=== PATIENT | male | born 1980 | race African-American/Black ===

== ENCOUNTER 2016-04-19 10:25 | Emergency (ER) | payer OTHER ==
[~2016-04-19] VITALS: Ht 182.9 cm; Wt 71.0 kg
[~2016-04-19 10:25] MED LIST: AMITRIPTYLINE H50 MG PO; AMOXICILLIN500 MG PO; ATIVAN0.25 MG PO; ATIVAN1 MG PO; BENZTROPINE MESY1 MG PO; CHLORHEXIDINE473 ML MM; CLEOCIN150 MG PO; CLINDAMYCIN HC150 MG PO; COGENTIN0.5 MG PO; COGENTIN1 MG PO; DESYREL100 MG PO; DIVALPROEX SOD500 MG PO; HYDROXYZINE HCL25 MG PO; IBUPROFEN600 MG PO; LORAZEPAM1 MG PO; NAPROSYN375 MG PO; NAPROXEN375 MG PO; PERIDEX1 ML MM; RISPERDAL0.25 MG PO; RISPERDAL1 M1 PO; RISPERDAL2 MG PO; RISPERDAL25 MG/2 ML IM; RISPERIDONE0.5 MG PO; RISPERIDONE1 MG PO; ULTRAM50 MG PO; ZOLPIDEM TARTRAT5 MG PO; risperDAL PO
[2016-04-19 11:57] LABS: EOSINOPHIL (%) 1.3 % (0-5); EOSINOPHIL COUNT 0.1 K/uL (0-0.3); HEMATOCRIT 41.8 % (38.0-50.0); LYMPHOCYTE COUNT 1.4 K/uL (1.0-2.8); MCH 31.8 PG (29.0-34.0); MCHC 34.4 G/DL (30.0-36.0); MCV 92.3 FL (86-99); MEAN PLAT.VOLUME 9.4 uM^3 (9.0-12.4); MONOCYTE COUNT 0.6 K/uL (0-0.8); NEUTROPHIL (%) 48.6 % (45-76); NEUTROPHIL COUNT 1.9 K/uL (1.8-6.4); PLATELET COUNT 209 K/uL (156-360); RBC DIS.WIDTH-CV 13.8 % (11.8-14.6); RBC DIS.WIDTH-SD 45.1 % (39-53); RED BLOOD COUNT 4.53 M/uL (4.00-5.50)
[2016-04-19 12:06] LABS: ADD MIUA? NO; BILIRUBIN NEGATIVE; BLOOD NEGATIVE; COLOR YELLOW ((YELLOW)); GLUCOSE (STRIP) NEGATIVE; KETONES 5; LEUKOCYTES NEGATIVE; NITRITE NEGATIVE; PROTEIN (STRIP) NEGATIVE; UROBILINOGEN 0.2 MG/DL (0.2-1.0)
[2016-04-19 12:12] LABS: CHLORIDE 101 mEq/L (99-109); SODIUM 137 mEq/L (136-147)
[2016-04-19 12:13] LABS: GLUCOSE 94 mg/dL (70-99)
[2016-04-19 12:15] LABS: ANION GAP 13 MEQ/L (2-14)
[2016-04-19 12:16] LABS: SERUM ETHYL ALCOHOL 48 mg/dL
[2016-04-19 12:17] LABS: GFR ESTIMATE (CALCULATED) > 59 mL/min/
[2016-04-19 12:18] LABS: UREA NITROGEN (BUN) 7 mg/dL (9-23)
[2016-04-19 12:22] LABS: AMPHETAMINE NEGATIVE (500 ng/mL); BARBITURATES NEGATIVE (200 ng/mL); BENZODIAZEPINES NEGATIVE (150 ng/mL); COCAINE NEGATIVE (150 ng/mL); INTERNAL CONTROLS VALID? YES; METHADONE NEGATIVE (200 ng/mL); METHAMPHETAMINE NEGATIVE (500 ng/mL); OPIATES (MORPHINE) NEGATIVE (100 ng/mL); OXYCODONE NEGATIVE (100 ng/mL); PHENCYCLIDINE NEGATIVE (25 ng/mL); PROPOXYPHENE NEGATIVE (300 ng/mL); THC CANNABINOIDS NEGATIVE (50 ng/mL); TRICYCLIC ANTIDEPRESSANTS NEGATIVE (300 ng/mL)
[2016-04-19 12:39] VITALS: BP 120/68
== END 2016-04-19 12:39 | disposition home or self-care (01) ==
LOC: EME 10:25
PROVIDERS: Emergency Medicine
DX: F20.9 Schizophrenia, unspecified (principal); R40.0 Somnolence; Z91.14 Patient's other noncompliance with medication regimen; F17.200 Nicotine dependence, unspecified, uncomplicated
CPT/HCPCS: 80048; 81003; 85025; 90839; 99281; 99284; G0480

== ENCOUNTER 2016-05-02 21:34 | Emergency (ER) | payer OTHER ==
[~2016-05-02] VITALS: Ht 182.9 cm; Wt 69.4 kg
[2016-05-02] MEDS ORDERED: ZOLOFT100 MG PO (21:45)
[2016-05-02 22:22] LABS: EOSINOPHIL (%) 2.9 % (0-5); EOSINOPHIL COUNT 0.1 K/uL (0-0.3); HEMATOCRIT 38.9 % (38.0-50.0); IMMATURE GRANULOCYTE (%) 0.2 % (0.0-0.7); INSTRUMENT ABS NEUTROPHIL CT 1.5 K/uL; MCH 31.4 PG (29.0-34.0); MCHC 33.9 G/DL (30.0-36.0); MCV 92.4 FL (86-99); MONOCYTE (%) 11.3 % (3-12); MONOCYTE COUNT 0.5 K/uL (0-0.8); NEUTROPHIL (%) 36.3 % (45-76); NEUTROPHIL COUNT 1.5 K/uL (1.8-6.4); PLATELET COUNT 178 K/uL (156-360); RBC DIS.WIDTH-SD 47.5 % (39-53); RED BLOOD COUNT 4.21 M/uL (4.00-5.50); WHITE BLOOD COUNT 4.2 K/uL (4.1-10.2)
[2016-05-02 22:32] LABS: CHLORIDE 107 mEq/L (99-109)
[2016-05-02 22:33] LABS: POTASSIUM 3.8 mEq/L (3.7-5.4); SODIUM 144 mEq/L (136-147)
[2016-05-02 22:35] LABS: GLUCOSE 93 mg/dL (70-99)
[2016-05-02 22:36] LABS: ANION GAP 13 MEQ/L (2-14)
[2016-05-02 22:37] LABS: TOTAL BILIRUBIN 0.2 mg/dL (0.0-1.0)
[2016-05-02 22:38] LABS: SERUM ETHYL ALCOHOL 268 mg/dL
[2016-05-02 22:39] LABS: ALKALINE PHOSPHATASE 63 IU/L (3-129); GFR ESTIMATE (CALCULATED) > 59 mL/min/
[2016-05-02 22:41] LABS: UREA NITROGEN (BUN) 7 mg/dL (9-23)
[2016-05-02 22:42] LABS: SALICYLATE < 5.0 MG/DL (15-30)
[2016-05-03 05:17] VITALS: BP 121/74
== END 2016-05-03 05:22 | disposition home or self-care (01) ==
LOC: EME 21:34
PROVIDERS: Emergency Medicine
DX: F10.129 Alcohol abuse with intoxication, unspecified (principal); Y90.8 Blood alcohol level of 240 mg/100 ml or more; F32.9 Major depressive disorder, single episode, unspecified; F20.9 Schizophrenia, unspecified; I10 Essential (primary) hypertension; F17.200 Nicotine dependence, unspecified, uncomplicated
CPT/HCPCS: 80053; 81003; 85025; 90839; 99281; 99285; G0480

== ENCOUNTER 2016-05-25 22:46 | Emergency (ER) | payer OTHER ==
[~2016-05-25] VITALS: Ht 182.9 cm; Wt 80.0 kg
[~2016-05-25 22:46] MED LIST changes: +ZOLOFT100 MG PO
[2016-05-26 05:07] LABS: EOSINOPHIL (%) 2.7 % (0-5); EOSINOPHIL COUNT 0.1 K/uL (0-0.3); HEMATOCRIT 41.6 % (38.0-50.0); IMMATURE GRANULOCYTE (%) 0.2 % (0.0-0.7); LYMPHOCYTE COUNT 2.4 K/uL (1.0-2.8); MCH 31.3 PG (29.0-34.0); MCHC 34.1 G/DL (30.0-36.0); MCV 91.8 FL (86-99); MEAN PLAT.VOLUME 9.2 uM^3 (9.0-12.4); MONOCYTE (%) 14.3 % (3-12); MONOCYTE COUNT 0.6 K/uL (0-0.8); NEUTROPHIL (%) 25.1 % (45-76); PLATELET COUNT 134 K/uL (156-360); RBC DIS.WIDTH-CV 15.2 % (11.8-14.6); RBC DIS.WIDTH-SD 51.5 % (39-53); RED BLOOD COUNT 4.53 M/uL (4.00-5.50); WHITE BLOOD COUNT 4.1 K/uL (4.1-10.2)
[2016-05-26 05:25] LABS: CHLORIDE 106 mEq/L (99-109); POTASSIUM 4.3 mEq/L (3.7-5.4); SODIUM 145 mEq/L (136-147)
[2016-05-26 05:27] LABS: GLUCOSE 83 mg/dL (70-99)
[2016-05-26 05:29] LABS: ANION GAP 14 MEQ/L (2-14)
[2016-05-26 05:31] LABS: GFR ESTIMATE (CALCULATED) > 59 mL/min/
[2016-05-26 05:32] LABS: UREA NITROGEN (BUN) 5 mg/dL (9-23)
[2016-05-26 07:53] LABS: AMPHETAMINE NEGATIVE (500 ng/mL); BARBITURATES NEGATIVE (200 ng/mL); BENZODIAZEPINES NEGATIVE (150 ng/mL); COCAINE NEGATIVE (150 ng/mL); INTERNAL CONTROLS VALID? YES; METHADONE NEGATIVE (200 ng/mL); METHAMPHETAMINE NEGATIVE (500 ng/mL); OPIATES (MORPHINE) NEGATIVE (100 ng/mL); OXYCODONE NEGATIVE (100 ng/mL); PHENCYCLIDINE NEGATIVE (25 ng/mL); PROPOXYPHENE NEGATIVE (300 ng/mL); THC CANNABINOIDS NEGATIVE (50 ng/mL); TRICYCLIC ANTIDEPRESSANTS NEGATIVE (300 ng/mL)
[2016-05-26 10:48] VITALS: BP 142/89
== END 2016-05-26 10:51 | disposition home or self-care (01) ==
LOC: EME 22:46
PROVIDERS: Emergency Medicine
DX: F10.129 Alcohol abuse with intoxication, unspecified (principal); Y90.8 Blood alcohol level of 240 mg/100 ml or more; F32.9 Major depressive disorder, single episode, unspecified; F19.94 Other psychoactive substance use, unspecified with psychoactive substance-induced mood disorder; I10 Essential (primary) hypertension; F17.200 Nicotine dependence, unspecified, uncomplicated
CPT/HCPCS: 70450; 80048; 85025; 90839; 99281; 99285; G0480

== ENCOUNTER 2016-05-29 01:36 | Emergency (ER) | payer OTHER ==
[~2016-05-29] VITALS: Ht 182.9 cm; Wt 68.8 kg
[2016-05-29 06:40] VITALS: BP 117/69
== END 2016-05-29 06:44 | disposition home or self-care (01) ==
LOC: EME 01:36
DX: F10.10 Alcohol abuse, uncomplicated (principal); F17.200 Nicotine dependence, unspecified, uncomplicated
CPT/HCPCS: 71020; 99281; 99284

== ENCOUNTER 2016-06-06 23:45 | Emergency (ER) | payer OTHER ==
[~2016-06-06] VITALS: Ht 182.9 cm; Wt 69.0 kg
[2016-06-07 06:22] VITALS: BP 120/72
== END 2016-06-07 06:30 | disposition home or self-care (01) ==
LOC: EME 23:45
DX: F10.129 Alcohol abuse with intoxication, unspecified (principal); F17.200 Nicotine dependence, unspecified, uncomplicated
CPT/HCPCS: 99281; 99284

== ENCOUNTER 2016-06-12 21:42 | Emergency (ER) | payer OTHER ==
[~2016-06-12] VITALS: Ht 182.9 cm; Wt 67.2 kg
[2016-06-12 23:08] LABS: TROP-I INTERPRETATION NEGATIVE; TROPONIN-I 0.01 ng/mL (0.0-0.30)
[2016-06-13 02:39] LABS: TROP-I INTERPRETATION NEGATIVE; TROPONIN-I < 0.01 ng/mL (0.0-0.30)
[2016-06-13 05:59] VITALS: BP 110/65
== END 2016-06-13 05:59 | disposition home or self-care (01) ==
LOC: EME → EDBD 21:42 → EME 06-13 05:59
PROVIDERS: Emergency Medicine
DX: R07.9 Chest pain, unspecified (principal); F10.229 Alcohol dependence with intoxication, unspecified; F17.200 Nicotine dependence, unspecified, uncomplicated
CPT/HCPCS: 71020; 84484; 93005; 99281; 99285

== ENCOUNTER 2016-06-20 21:30 | Emergency (ER) | payer OTHER ==
[~2016-06-20] VITALS: Ht 182.9 cm; Wt 68.8 kg
[2016-06-21 01:10] VITALS: BP 127/44
== END 2016-06-21 01:23 | disposition home or self-care (01) ==
LOC: EME 21:30
DX: S00.83XA Contusion of other part of head, initial encounter (principal); Y04.0XXA Assault by unarmed brawl or fight, initial encounter; Y93.84 Activity, sleeping; Y92.009 Unspecified place in unspecified non-institutional (private) residence as the place of occurrence of the external cause; F20.9 Schizophrenia, unspecified; F17.200 Nicotine dependence, unspecified, uncomplicated; F10.10 Alcohol abuse, uncomplicated; F12.90 Cannabis use, unspecified, uncomplicated; F14.90 Cocaine use, unspecified, uncomplicated
CPT/HCPCS: 70110; 99281; 99284

== ENCOUNTER 2016-06-21 21:48 | Emergency (ER) | payer OTHER ==
[~2016-06-21] VITALS: Ht 182.9 cm; Wt 65.0 kg
[2016-06-21 22:31] LABS: HEMATOCRIT 39.3 % (38.0-50.0); MCH 31.3 PG (29.0-34.0); MCHC 33.6 G/DL (30.0-36.0); MCV 93.1 FL (86-99); MEAN PLAT.VOLUME 8.9 uM^3 (9.0-12.4); RBC DIS.WIDTH-CV 14.2 % (11.8-14.6); RBC DIS.WIDTH-SD 48.3 % (39-53); RED BLOOD COUNT 4.22 M/uL (4.00-5.50)
[2016-06-21 22:32] LABS: PLATELET COUNT 214 K/uL (156-360); WHITE BLOOD COUNT 5.8 K/uL (4.1-10.2)
[2016-06-21 22:48] LABS: CHLORIDE 105 mEq/L (99-109); SODIUM 141 mEq/L (136-147)
[2016-06-21 22:49] LABS: ADD MIUA? YES; BILIRUBIN NEGATIVE; BLOOD SMALL; COLOR YELLOW ((YELLOW)); GLUCOSE (STRIP) NEGATIVE; KETONES NEGATIVE; LEUKOCYTES NEGATIVE; NITRITE NEGATIVE; PROTEIN (STRIP) NEGATIVE; SPECIFIC GRAVITY 1.008 (1.000-1.030); UROBILINOGEN 0.2 MG/DL (0.2-1.0)
[2016-06-21 22:50] LABS: GLUCOSE 86 mg/dL (70-99)
[2016-06-21 22:51] LABS: ANION GAP 12 MEQ/L (2-14)
[2016-06-21 22:52] LABS: TOTAL BILIRUBIN 0.3 mg/dL (0.0-1.0)
[2016-06-21 22:53] LABS: ALKALINE PHOSPHATASE 59 IU/L (3-129); SERUM ETHYL ALCOHOL 286 mg/dL
[2016-06-21 22:54] LABS: GFR ESTIMATE (CALCULATED) > 59 mL/min/
[2016-06-21 22:55] LABS: UREA NITROGEN (BUN) 5 mg/dL (9-23)
[2016-06-21 22:56] LABS: THC CANNABINOIDS NEGATIVE (50 ng/mL)
[2016-06-21 22:57] LABS: AMPHETAMINE NEGATIVE (500 ng/mL); BARBITURATES NEGATIVE (200 ng/mL); BENZODIAZEPINES NEGATIVE (150 ng/mL); COCAINE NEGATIVE (150 ng/mL); INTERNAL CONTROLS VALID? YES; METHADONE NEGATIVE (200 ng/mL); METHAMPHETAMINE NEGATIVE (500 ng/mL); OPIATES (MORPHINE) NEGATIVE (100 ng/mL); OXYCODONE NEGATIVE (100 ng/mL); PHENCYCLIDINE NEGATIVE (25 ng/mL); PROPOXYPHENE NEGATIVE (300 ng/mL); TRICYCLIC ANTIDEPRESSANTS NEGATIVE (300 ng/mL)
[2016-06-21 22:58] LABS: BACTERIA NONE SEEN /HPF; EPITHELIAL CELLS NONE SEEN /HPF; MUCUS NONE SEEN /LPF; RED BLOOD CELLS 0-5 /HPF (0-5); WHITE BLOOD CELLS NONE SEEN /HPF (0-5)
[2016-06-22 06:09] VITALS: BP 121/70
== END 2016-06-22 06:10 | disposition home or self-care (01) ==
LOC: EME → EDBD 21:48 → EME 21:48
PROVIDERS: Emergency Medicine
DX: F10.129 Alcohol abuse with intoxication, unspecified (principal); F20.9 Schizophrenia, unspecified; F12.90 Cannabis use, unspecified, uncomplicated; I10 Essential (primary) hypertension; F31.9 Bipolar disorder, unspecified; F17.200 Nicotine dependence, unspecified, uncomplicated
CPT/HCPCS: 80053; 81003; 85027; 99281; 99285; G0480

== ENCOUNTER 2016-07-03 22:56 | Emergency (ER) | payer OTHER ==
[~2016-07-03] VITALS: Ht 182.9 cm; Wt 67.4 kg
[2016-07-03 23:33] LABS: HEMATOCRIT 38.6 % (38.0-50.0); MCH 31.7 PG (29.0-34.0); MCHC 34.5 G/DL (30.0-36.0); MCV 91.9 FL (86-99); MEAN PLAT.VOLUME 8.9 uM^3 (9.0-12.4); PLATELET COUNT 204 K/uL (156-360); RBC DIS.WIDTH-CV 14.1 % (11.8-14.6); RBC DIS.WIDTH-SD 47.8 % (39-53); WHITE BLOOD COUNT 4.5 K/uL (4.1-10.2)
[2016-07-03 23:45] LABS: CHLORIDE 106 mEq/L (99-109); POTASSIUM 3.7 mEq/L (3.7-5.4); SODIUM 140 mEq/L (136-147)
[2016-07-03 23:47] LABS: GLUCOSE 106 mg/dL (70-99)
[2016-07-03 23:49] LABS: ANION GAP 13 MEQ/L (2-14)
[2016-07-03 23:50] LABS: SERUM ETHYL ALCOHOL 246 mg/dL
[2016-07-03 23:51] LABS: GFR ESTIMATE (CALCULATED) > 59 mL/min/
[2016-07-03 23:53] LABS: UREA NITROGEN (BUN) 11 mg/dL (9-23)
[2016-07-03 23:54] LABS: SALICYLATE < 5.0 MG/DL (15-30)
[2016-07-04 02:04] LABS: ADD MIUA? NO; BILIRUBIN NEGATIVE; BLOOD NEGATIVE; COLOR COLORLESS ((YELLOW)); GLUCOSE (STRIP) NEGATIVE; KETONES NEGATIVE; LEUKOCYTES NEGATIVE; NITRITE NEGATIVE; PROTEIN (STRIP) NEGATIVE; SPECIFIC GRAVITY 1.004 (1.000-1.030); UCUL ADDED? NO; UROBILINOGEN 0.2 MG/DL (0.2-1.0)
[2016-07-04 02:13] LABS: AMPHETAMINE NEGATIVE (500 ng/mL); BARBITURATES NEGATIVE (200 ng/mL); BENZODIAZEPINES NEGATIVE (150 ng/mL); COCAINE NEGATIVE (150 ng/mL); INTERNAL CONTROLS VALID? YES; METHADONE NEGATIVE (200 ng/mL); METHAMPHETAMINE NEGATIVE (500 ng/mL); OPIATES (MORPHINE) NEGATIVE (100 ng/mL); OXYCODONE NEGATIVE (100 ng/mL); PHENCYCLIDINE NEGATIVE (25 ng/mL); PROPOXYPHENE NEGATIVE (300 ng/mL); THC CANNABINOIDS NEGATIVE (50 ng/mL); TRICYCLIC ANTIDEPRESSANTS NEGATIVE (300 ng/mL)
[2016-07-04 06:29] VITALS: BP 113/75
[2016-07-05] MEDS ORDERED: LIDOCAINE700 MG TD (07:05)
== END 2016-07-04 07:24 | disposition home or self-care (01) ==
LOC: EME 22:56
PROVIDERS: Emergency Medicine
DX: F20.9 Schizophrenia, unspecified (principal); F32.9 Major depressive disorder, single episode, unspecified; F10.129 Alcohol abuse with intoxication, unspecified; Y90.8 Blood alcohol level of 240 mg/100 ml or more; F17.200 Nicotine dependence, unspecified, uncomplicated
CPT/HCPCS: 80048; 81003; 85027; 90839; G0480

== ENCOUNTER 2016-07-04 22:36 | Emergency (ER) | payer OTHER ==
[~2016-07-04] VITALS: Ht 182.9 cm; Wt 68.1 kg
[2016-07-05 04:40] LABS: EOSINOPHIL COUNT 0.1 K/uL (0-0.3); HEMATOCRIT 40.1 % (38.0-50.0); IMMATURE GRANULOCYTE (%) 0.2 % (0.0-0.7); INSTRUMENT ABS NEUTROPHIL CT 1.2 K/uL; LYMPHOCYTE COUNT 2.2 K/uL (1.0-2.8); MCH 31.7 PG (29.0-34.0); MCHC 34.4 G/DL (30.0-36.0); MEAN PLAT.VOLUME 8.9 uM^3 (9.0-12.4); MONOCYTE (%) 13.1 % (3-12); MONOCYTE COUNT 0.5 K/uL (0-0.8); NEUTROPHIL (%) 29.3 % (45-76); NEUTROPHIL COUNT 1.2 K/uL (1.8-6.4); PLATELET COUNT 223 K/uL (156-360); RBC DIS.WIDTH-CV 14.3 % (11.8-14.6); RBC DIS.WIDTH-SD 48.6 % (39-53); RED BLOOD COUNT 4.36 M/uL (4.00-5.50); WHITE BLOOD COUNT 4.1 K/uL (4.1-10.2)
[2016-07-05 04:51] LABS: CHLORIDE 105 mEq/L (99-109); POTASSIUM 3.9 mEq/L (3.7-5.4); SODIUM 136 mEq/L (136-147)
[2016-07-05 04:53] LABS: GLUCOSE 85 mg/dL (70-99)
[2016-07-05 04:54] LABS: ANION GAP 13 MEQ/L (2-14)
[2016-07-05 04:56] LABS: SERUM ETHYL ALCOHOL 131 mg/dL
[2016-07-05 04:57] LABS: GFR ESTIMATE (CALCULATED) > 59 mL/min/; UREA NITROGEN (BUN) 7 mg/dL (9-23)
[2016-07-05] MEDS ORDERED: LIDOCAINE700 MG TD (07:05)
[2016-07-05 08:03] VITALS: BP 113/68
== END 2016-07-05 08:04 | disposition home or self-care (01) ==
LOC: EME 22:36
PROVIDERS: Emergency Medicine
DX: F10.129 Alcohol abuse with intoxication, unspecified (principal); Y90.6 Blood alcohol level of 120-199 mg/100 ml; S20.219A Contusion of unspecified front wall of thorax, initial encounter; W10.9XXA Fall (on) (from) unspecified stairs and steps, initial encounter; Z72.0 Tobacco use
CPT/HCPCS: 71020; 80048; 85025; 99281; 99284; G0480

== ENCOUNTER 2016-07-05 23:52 | Emergency (ER) | payer OTHER ==
[~2016-07-05] VITALS: Ht 188 cm; Wt 67.6 kg
[~2016-07-05 23:52] MED LIST changes: +LIDOCAINE700 MG TD
[2016-07-06 00:49] LABS: ADD MIUA? NO; BILIRUBIN NEGATIVE; BLOOD NEGATIVE; COLOR STRAW ((YELLOW)); GLUCOSE (STRIP) NEGATIVE; KETONES NEGATIVE; LEUKOCYTES NEGATIVE; NITRITE NEGATIVE; PROTEIN (STRIP) NEGATIVE; SPECIFIC GRAVITY 1.005 (1.000-1.030); UCUL ADDED? NO; UROBILINOGEN 0.2 MG/DL (0.2-1.0)
[2016-07-06 00:56] LABS: HEMATOCRIT 37.6 % (38.0-50.0); MCH 31.3 PG (29.0-34.0); MCHC 34.3 G/DL (30.0-36.0); MCV 91.3 FL (86-99); MEAN PLAT.VOLUME 8.8 uM^3 (9.0-12.4); PLATELET COUNT 209 K/uL (156-360); RBC DIS.WIDTH-CV 13.9 % (11.8-14.6); RED BLOOD COUNT 4.12 M/uL (4.00-5.50); WHITE BLOOD COUNT 4.6 K/uL (4.1-10.2)
[2016-07-06 00:57] LABS: AMPHETAMINE NEGATIVE (500 ng/mL); BARBITURATES NEGATIVE (200 ng/mL); BENZODIAZEPINES NEGATIVE (150 ng/mL); COCAINE NEGATIVE (150 ng/mL); INTERNAL CONTROLS VALID? YES; METHADONE NEGATIVE (200 ng/mL); METHAMPHETAMINE NEGATIVE (500 ng/mL); OPIATES (MORPHINE) NEGATIVE (100 ng/mL); OXYCODONE NEGATIVE (100 ng/mL); PHENCYCLIDINE NEGATIVE (25 ng/mL); PROPOXYPHENE NEGATIVE (300 ng/mL); THC CANNABINOIDS NEGATIVE (50 ng/mL); TRICYCLIC ANTIDEPRESSANTS NEGATIVE (300 ng/mL)
[2016-07-06 01:05] LABS: CHLORIDE 103 mEq/L (99-109); POTASSIUM 3.9 mEq/L (3.7-5.4); SODIUM 136 mEq/L (136-147)
[2016-07-06 01:07] LABS: GLUCOSE 90 mg/dL (70-99)
[2016-07-06 01:09] LABS: ANION GAP 14 MEQ/L (2-14)
[2016-07-06 01:10] LABS: SERUM ETHYL ALCOHOL 225 mg/dL
[2016-07-06 01:11] LABS: GFR ESTIMATE (CALCULATED) > 59 mL/min/
[2016-07-06 01:12] LABS: UREA NITROGEN (BUN) 8 mg/dL (9-23)
[2016-07-06 05:29] VITALS: BP 123/77
== END 2016-07-06 05:29 | disposition home or self-care (01) ==
LOC: EME 23:52
PROVIDERS: Emergency Medicine
DX: F10.129 Alcohol abuse with intoxication, unspecified (principal); F12.10 Cannabis abuse, uncomplicated; Y90.7 Blood alcohol level of 200-239 mg/100 ml; F17.200 Nicotine dependence, unspecified, uncomplicated
CPT/HCPCS: 80048; 81003; 85027; 99281; 99284; G0480

== ENCOUNTER 2016-07-23 15:12 | Emergency (ER) | payer OTHER ==
[~2016-07-23] VITALS: Ht 182.9 cm; Wt 65.7 kg
[2016-07-23 16:24] LABS: HEMATOCRIT 35.1 % (38.0-50.0); MCH 31.7 PG (29.0-34.0); MCV 90.5 FL (86-99); MEAN PLAT.VOLUME 8.9 uM^3 (9.0-12.4); PLATELET COUNT 150 K/uL (156-360); RBC DIS.WIDTH-CV 13.6 % (11.8-14.6); RBC DIS.WIDTH-SD 45.4 % (39-53); RED BLOOD COUNT 3.88 M/uL (4.00-5.50); WHITE BLOOD COUNT 3.4 K/uL (4.1-10.2)
[2016-07-23 16:32] LABS: CHLORIDE 99 mEq/L (99-109); POTASSIUM 3.9 mEq/L (3.7-5.4); SODIUM 131 mEq/L (136-147)
[2016-07-23 16:34] LABS: GLUCOSE 94 mg/dL (70-99)
[2016-07-23 16:35] LABS: ANION GAP 10 MEQ/L (2-14)
[2016-07-23 16:36] LABS: TOTAL BILIRUBIN 0.3 mg/dL (0.0-1.0)
[2016-07-23 16:37] LABS: SERUM ETHYL ALCOHOL 235 mg/dL
[2016-07-23 16:38] LABS: ALKALINE PHOSPHATASE 48 IU/L (3-129); GFR ESTIMATE (CALCULATED) > 59 mL/min/
[2016-07-23 16:39] LABS: UREA NITROGEN (BUN) 5 mg/dL (9-23)
[2016-07-23 18:39] VITALS: BP 118/87
[2016-07-23 18:59] LABS: ADD MIUA? NO; BILIRUBIN NEGATIVE; BLOOD NEGATIVE; COLOR STRAW ((YELLOW)); GLUCOSE (STRIP) NEGATIVE; KETONES NEGATIVE; LEUKOCYTES NEGATIVE; NITRITE NEGATIVE; PROTEIN (STRIP) NEGATIVE; SPECIFIC GRAVITY 1.003 (1.000-1.030); UROBILINOGEN 0.2 MG/DL (0.2-1.0)
[2016-07-23 19:19] LABS: AMPHETAMINE NEGATIVE (500 ng/mL); BARBITURATES NEGATIVE (200 ng/mL); BENZODIAZEPINES NEGATIVE (150 ng/mL); COCAINE NEGATIVE (150 ng/mL); INTERNAL CONTROLS VALID? YES; METHADONE NEGATIVE (200 ng/mL); METHAMPHETAMINE NEGATIVE (500 ng/mL); OPIATES (MORPHINE) NEGATIVE (100 ng/mL); OXYCODONE NEGATIVE (100 ng/mL); PHENCYCLIDINE NEGATIVE (25 ng/mL); PROPOXYPHENE NEGATIVE (300 ng/mL); THC CANNABINOIDS NEGATIVE (50 ng/mL); TRICYCLIC ANTIDEPRESSANTS NEGATIVE (300 ng/mL)
== END 2016-07-23 18:56 | disposition home or self-care (01) ==
LOC: EME 15:12
PROVIDERS: Emergency Medicine
DX: F12.10 Cannabis abuse, uncomplicated (principal); F10.129 Alcohol abuse with intoxication, unspecified; Y90.7 Blood alcohol level of 200-239 mg/100 ml; I10 Essential (primary) hypertension; F20.9 Schizophrenia, unspecified; F17.200 Nicotine dependence, unspecified, uncomplicated
CPT/HCPCS: 71020; 80053; 81003; 85027; 99281; 99284; G0480

== ENCOUNTER 2016-08-08 00:48 | Emergency (ER) | payer OTHER ==
[~2016-08-08] VITALS: Ht 182.9 cm; Wt 63.8 kg
[2016-08-08 01:18] LABS: HEMATOCRIT 38.5 % (38.0-50.0); MCH 31.9 PG (29.0-34.0); MCHC 34.5 G/DL (30.0-36.0); MCV 92.3 FL (86-99); MEAN PLAT.VOLUME 9.1 uM^3 (9.0-12.4); PLATELET COUNT 160 K/uL (156-360); RBC DIS.WIDTH-CV 13.8 % (11.8-14.6); RBC DIS.WIDTH-SD 46.6 % (39-53); RED BLOOD COUNT 4.17 M/uL (4.00-5.50); WHITE BLOOD COUNT 5.1 K/uL (4.1-10.2)
[2016-08-08 01:31] LABS: CHLORIDE 101 mEq/L (99-109); POTASSIUM 3.5 mEq/L (3.7-5.4); SODIUM 135 mEq/L (136-147)
[2016-08-08 01:33] LABS: GLUCOSE 115 mg/dL (70-99)
[2016-08-08 01:34] LABS: ANION GAP 10 MEQ/L (2-14)
[2016-08-08 01:35] LABS: TOTAL BILIRUBIN 0.3 mg/dL (0.0-1.0)
[2016-08-08 01:36] LABS: SERUM ETHYL ALCOHOL 210 mg/dL
[2016-08-08 01:37] LABS: GFR ESTIMATE (CALCULATED) > 59 mL/min/
[2016-08-08 01:38] LABS: ALKALINE PHOSPHATASE 52 IU/L (3-129)
[2016-08-08 01:39] LABS: UREA NITROGEN (BUN) 11 mg/dL (9-23)
[2016-08-08 01:40] LABS: SALICYLATE < 5.0 MG/DL (15-30)
[2016-08-08 03:42] LABS: ADD MIUA? NO; BILIRUBIN NEGATIVE; BLOOD NEGATIVE; COLOR STRAW ((YELLOW)); GLUCOSE (STRIP) NEGATIVE; KETONES NEGATIVE; LEUKOCYTES NEGATIVE; NITRITE NEGATIVE; PROTEIN (STRIP) NEGATIVE; SPECIFIC GRAVITY 1.004 (1.000-1.030); UCUL ADDED? NO; UROBILINOGEN 0.2 MG/DL (0.2-1.0)
[2016-08-08 03:44] LABS: AMPHETAMINE NEGATIVE (500 ng/mL); BARBITURATES NEGATIVE (200 ng/mL); BENZODIAZEPINES NEGATIVE (150 ng/mL); COCAINE NEGATIVE (150 ng/mL); INTERNAL CONTROLS VALID? YES; METHADONE NEGATIVE (200 ng/mL); METHAMPHETAMINE NEGATIVE (500 ng/mL); OPIATES (MORPHINE) NEGATIVE (100 ng/mL); OXYCODONE NEGATIVE (100 ng/mL); PHENCYCLIDINE NEGATIVE (25 ng/mL); PROPOXYPHENE NEGATIVE (300 ng/mL); THC CANNABINOIDS NEGATIVE (50 ng/mL); TRICYCLIC ANTIDEPRESSANTS NEGATIVE (300 ng/mL)
[2016-08-08 06:04] VITALS: BP 108/62
== END 2016-08-08 06:04 | disposition home or self-care (01) ==
LOC: EME → EDBD 00:48 → EME 00:48
PROVIDERS: Emergency Medicine
DX: F10.129 Alcohol abuse with intoxication, unspecified (principal); Y90.7 Blood alcohol level of 200-239 mg/100 ml; F32.9 Major depressive disorder, single episode, unspecified; F20.9 Schizophrenia, unspecified; I10 Essential (primary) hypertension; F17.200 Nicotine dependence, unspecified, uncomplicated
CPT/HCPCS: 80053; 81003; 85027; 90837; 99281; 99285; G0480; J7030

== ENCOUNTER 2016-08-19 22:55 | Emergency (ER) | payer OTHER ==
[~2016-08-19] VITALS: Ht 182.9 cm; Wt 63.8 kg
[2016-08-19 23:40] LABS: MCH 31.7 PG (29.0-34.0); MCHC 34.2 G/DL (30.0-36.0); MCV 92.8 FL (86-99); MEAN PLAT.VOLUME 9.4 uM^3 (9.0-12.4); PLATELET COUNT 169 K/uL (156-360); RBC DIS.WIDTH-CV 13.9 % (11.8-14.6); RBC DIS.WIDTH-SD 47.3 % (39-53); RED BLOOD COUNT 3.88 M/uL (4.00-5.50); WHITE BLOOD COUNT 4.2 K/uL (4.1-10.2)
[2016-08-19 23:46] LABS: CARBON DIOXIDE (BICARBONATE) 26.2 MEQ/L (20-31)
[2016-08-19 23:50] LABS: CHLORIDE 103 mEq/L (99-109); POTASSIUM 3.3 mEq/L (3.7-5.4); SODIUM 140 mEq/L (136-147)
[2016-08-19 23:52] LABS: GLUCOSE 124 mg/dL (70-99)
[2016-08-19 23:54] LABS: ANION GAP 13 MEQ/L (2-14)
[2016-08-19 23:56] LABS: GFR ESTIMATE (CALCULATED) > 59 mL/min/
[2016-08-19 23:57] LABS: UREA NITROGEN (BUN) 6 mg/dL (9-23)
[2016-08-20 05:30] VITALS: BP 154/69
== END 2016-08-20 05:59 | disposition home or self-care (01) ==
LOC: EME → EDBD 22:55 → EME 08-20 05:59
PROVIDERS: Emergency Medicine
DX: F19.10 Other psychoactive substance abuse, uncomplicated (principal); F32.9 Major depressive disorder, single episode, unspecified; F17.200 Nicotine dependence, unspecified, uncomplicated
CPT/HCPCS: 71010; 80048; 82803; 85027; 99281; 99284

== ENCOUNTER 2016-10-13 21:54 | Emergency (ER) | payer OTHER ==
[~2016-10-13] VITALS: Ht 182.9 cm; Wt 64.5 kg
[2016-10-13 23:24] LABS: HEMATOCRIT 36.9 % (38.0-50.0); MCH 32.1 PG (29.0-34.0); MCV 91.8 FL (86-99); MEAN PLAT.VOLUME 9.6 uM^3 (9.0-12.4); PLATELET COUNT 167 K/uL (156-360); RBC DIS.WIDTH-CV 13.9 % (11.8-14.6); RBC DIS.WIDTH-SD 47.4 % (39-53); RED BLOOD COUNT 4.02 M/uL (4.00-5.50); WHITE BLOOD COUNT 4.5 K/uL (4.1-10.2)
[2016-10-13 23:32] LABS: CHLORIDE 99 mEq/L (99-109); POTASSIUM 3.6 mEq/L (3.7-5.4); SODIUM 134 mEq/L (136-147)
[2016-10-13 23:34] LABS: GLUCOSE 138 mg/dL (70-99)
[2016-10-13 23:35] LABS: ANION GAP 13 MEQ/L (2-14)
[2016-10-13 23:37] LABS: SERUM ETHYL ALCOHOL 157 mg/dL
[2016-10-13 23:38] LABS: GFR ESTIMATE (CALCULATED) > 59 mL/min/
[2016-10-13 23:39] LABS: UREA NITROGEN (BUN) 9 mg/dL (9-23)
[2016-10-14 00:53] VITALS: BP 119/94
== END 2016-10-14 00:54 | disposition home or self-care (01) ==
LOC: EME → EDBD 21:54 → EME 21:54
PROVIDERS: Emergency Medicine
DX: F10.129 Alcohol abuse with intoxication, unspecified (principal); Y90.6 Blood alcohol level of 120-199 mg/100 ml; F19.10 Other psychoactive substance abuse, uncomplicated; S00.93XA Contusion of unspecified part of head, initial encounter; S60.211A Contusion of right wrist, initial encounter; M54.9 Dorsalgia, unspecified; W18.30XA Fall on same level, unspecified, initial encounter; Y92.89 Other specified places as the place of occurrence of the external cause; I10 Essential (primary) hypertension; F20.9 Schizophrenia, unspecified; F17.200 Nicotine dependence, unspecified, uncomplicated
CPT/HCPCS: 70450; 71020; 80048; 85027; 99281; 99284; G0480

== ENCOUNTER 2016-11-30 16:57 | Emergency (ER) | payer OTHER ==
[~2016-11-30] VITALS: Ht 182.9 cm; Wt 72.7 kg
[2016-11-30 17:51] LABS: CHLORIDE 105 mEq/L (99-109); POTASSIUM 3.8 mEq/L (3.7-5.4); SODIUM 141 mEq/L (136-147)
[2016-11-30 17:53] LABS: GLUCOSE 82 mg/dL (70-99)
[2016-11-30 17:54] LABS: ANION GAP 12 MEQ/L (2-14)
[2016-11-30 17:56] LABS: SERUM ETHYL ALCOHOL 134 mg/dL
[2016-11-30 17:57] LABS: GFR ESTIMATE (CALCULATED) > 59 mL/min/
[2016-11-30 17:59] LABS: UREA NITROGEN (BUN) 10 mg/dL (9-23)
[2016-11-30 18:00] LABS: SALICYLATE < 5.0 MG/DL (15-30)
[2016-11-30 19:40] LABS: EOSINOPHIL (%) 1.2 % (0-5); EOSINOPHIL COUNT 0.1 K/uL (0-0.3); HEMATOCRIT 37.4 % (38.0-50.0); IMMATURE GRANULOCYTE (%) 0.2 % (0.0-0.7); INSTRUMENT ABS NEUTROPHIL CT 2.7 K/uL; LYMPHOCYTE COUNT 1.8 K/uL (1.0-2.8); MCH 31.9 PG (29.0-34.0); MCHC 34.2 G/DL (30.0-36.0); MCV 93.3 FL (86-99); MEAN PLAT.VOLUME 10.2 uM^3 (9.0-12.4); MONOCYTE (%) 8.3 % (3-12); MONOCYTE COUNT 0.4 K/uL (0-0.8); NEUTROPHIL (%) 54.5 % (45-76); NEUTROPHIL COUNT 2.7 K/uL (1.8-6.4); PLATELET COUNT 201 K/uL (156-360); RBC DIS.WIDTH-CV 13.4 % (11.8-14.6); RBC DIS.WIDTH-SD 46.1 % (39-53); RED BLOOD COUNT 4.01 M/uL (4.00-5.50)
[2016-11-30 20:23] VITALS: BP 109/65
== END 2016-11-30 20:30 | disposition home or self-care (01) ==
LOC: EME 16:57
PROVIDERS: Emergency Medicine
DX: F12.10 Cannabis abuse, uncomplicated (principal); F10.10 Alcohol abuse, uncomplicated; F32.9 Major depressive disorder, single episode, unspecified; R53.1 Weakness; Y90.6 Blood alcohol level of 120-199 mg/100 ml; F17.200 Nicotine dependence, unspecified, uncomplicated
CPT/HCPCS: 71010; 80048; 85025; 93005; 99281; 99284; G0480

== ENCOUNTER 2017-01-19 23:55 | Emergency (ER) | payer OTHER ==
[~2017-01-19] VITALS: Ht 182.9 cm; Wt 72.1 kg
[2017-01-20 01:12] LABS: HEMATOCRIT 38.3 % (38.0-50.0); MCH 32.1 PG (29.0-34.0); MCHC 35.2 G/DL (30.0-36.0); MCV 91.2 FL (86-99); MEAN PLAT.VOLUME 8.8 uM^3 (9.0-12.4); PLATELET COUNT 197 K/uL (156-360); RBC DIS.WIDTH-CV 13.2 % (11.8-14.6); RBC DIS.WIDTH-SD 44.2 % (39-53)
[2017-01-20 01:22] LABS: CHLORIDE 99 mEq/L (99-109); POTASSIUM 3.6 mEq/L (3.7-5.4); SODIUM 136 mEq/L (136-147)
[2017-01-20 01:25] LABS: GLUCOSE 116 mg/dL (70-99)
[2017-01-20 01:26] LABS: ANION GAP 11 MEQ/L (2-14); TOTAL BILIRUBIN 0.2 mg/dL (0.0-1.0)
[2017-01-20 01:28] LABS: ALKALINE PHOSPHATASE 65 IU/L (3-129); GFR ESTIMATE (CALCULATED) > 59 mL/min/; SERUM ETHYL ALCOHOL 203 mg/dL
[2017-01-20 01:29] LABS: UREA NITROGEN (BUN) 6 mg/dL (9-23)
[2017-01-20 07:32] VITALS: BP 112/68
== END 2017-01-20 07:33 | disposition home or self-care (01) ==
LOC: EME 23:55
PROVIDERS: Emergency Medicine
DX: F10.129 Alcohol abuse with intoxication, unspecified (principal); F20.9 Schizophrenia, unspecified; Y90.7 Blood alcohol level of 200-239 mg/100 ml; F32.9 Major depressive disorder, single episode, unspecified; I10 Essential (primary) hypertension; F17.200 Nicotine dependence, unspecified, uncomplicated
CPT/HCPCS: 80053; 81003; 85027; 99281; 99283; G0480

== ENCOUNTER 2017-02-13 23:10 | Emergency (ER) | payer OTHER ==
[~2017-02-13] VITALS: Ht 188 cm; Wt 70.1 kg
[2017-02-14 00:32] LABS: BASOPHIL (%) 0.8 % (0-1); EOSINOPHIL COUNT 0.1 K/uL (0-0.3); HEMATOCRIT 43.2 % (38.0-50.0); HEMOGLOBIN 14.7 G/DL (12.5-16.6); IMMATURE GRANULOCYTE (%) 0.2 % (0.0-0.7); LYMPHOCYTE (%) 39.2 % (15-42); LYMPHOCYTE COUNT 2.1 K/uL (1.0-2.8); MCH 31.1 PG (29.0-34.0); MCV 91.5 FL (86-99); MONOCYTE (%) 8.8 % (3-12); MONOCYTE COUNT 0.5 K/uL (0-0.8); NEUTROPHIL COUNT 2.6 K/uL (1.8-6.4); PLATELET COUNT 211 K/uL (156-360); RBC DIS.WIDTH-CV 13.5 % (11.8-14.6); RBC DIS.WIDTH-SD 45.7 % (39-53); RED BLOOD COUNT 4.72 M/uL (4.00-5.50); WHITE BLOOD COUNT 5.3 K/uL (4.1-10.2)
[2017-02-14 00:43] LABS: ALBUMIN 4.1 g/dL (3.2-4.8); CHLORIDE 101 mEq/L (99-109)
[2017-02-14 00:44] LABS: POTASSIUM 4.1 mEq/L (3.7-5.4); SODIUM 139 mEq/L (136-147)
[2017-02-14 00:46] LABS: GLUCOSE 93 mg/dL (70-99); TOTAL PROTEIN 7.8 g/dL (6.4-8.3)
[2017-02-14 00:48] LABS: TOTAL BILIRUBIN 0.3 mg/dL (0.0-1.0)
[2017-02-14 00:49] LABS: ALKALINE PHOSPHATASE 70 IU/L (3-129); SERUM ETHYL ALCOHOL 297 mg/dL
[2017-02-14 00:50] LABS: CREATININE 0.9 mg/dL (0.6-1.3); GFR ESTIMATE (CALCULATED) > 59 mL/min/ (58.99-99999)
[2017-02-14 00:51] LABS: AST (GOT) 35 IU/L (2-34); UREA NITROGEN (BUN) 7 mg/dL (9-23)
[2017-02-14 00:52] LABS: ALT (GPT) 34 IU/L (3-49)
[2017-02-14 00:53] LABS: CREATINE KINASE 625 IU/L (1-294)
[2017-02-14 00:59] LABS: TROP-I INTERPRETATION NEGATIVE; TROPONIN-I < 0.01 ng/mL (0.0-0.30)
[2017-02-14 05:27] LABS: TROP-I INTERPRETATION NEGATIVE; TROPONIN-I < 0.01 ng/mL (0.0-0.30)
[2017-02-14 08:57] VITALS: BP 161/94
== END 2017-02-14 09:00 | disposition home or self-care (01) ==
LOC: EME 23:10
PROVIDERS: Emergency Medicine
DX: F10.129 Alcohol abuse with intoxication, unspecified (principal); R07.9 Chest pain, unspecified; R51 Headache; Y90.8 Blood alcohol level of 240 mg/100 ml or more; I10 Essential (primary) hypertension; F32.9 Major depressive disorder, single episode, unspecified; F20.9 Schizophrenia, unspecified; F17.200 Nicotine dependence, unspecified, uncomplicated
CPT/HCPCS: 70450; 72125; 80053; 82550; 84484; 85025; 93005; 99281; 99285; G0480

== ENCOUNTER 2017-04-25 22:19 | Emergency (ER) | payer OTHER ==
[~2017-04-25] VITALS: Ht 182.9 cm; Wt 68.9 kg
[2017-04-25 22:46] LABS: HEMATOCRIT 39.3 % (38.0-50.0); HEMOGLOBIN 13.9 G/DL (12.5-16.6); MCH 31.4 PG (29.0-34.0); MCHC 35.4 G/DL (30.0-36.0); MCV 88.9 FL (86-99); PLATELET COUNT 208 K/uL (156-360); RBC DIS.WIDTH-CV 13.4 % (11.8-14.6); RBC DIS.WIDTH-SD 44.2 % (39-53); RED BLOOD COUNT 4.42 M/uL (4.00-5.50); WHITE BLOOD COUNT 5.5 K/uL (4.1-10.2)
[2017-04-25 22:54] LABS: CHLORIDE 103 mEq/L (99-109); POTASSIUM 3.4 mEq/L (3.7-5.4); SODIUM 140 mEq/L (136-147)
[2017-04-25 22:57] LABS: GLUCOSE 85 mg/dL (70-99); TOTAL PROTEIN 7.5 g/dL (6.4-8.3)
[2017-04-25 22:58] LABS: TOTAL BILIRUBIN 0.3 mg/dL (0.0-1.0)
[2017-04-25 22:59] LABS: SERUM ETHYL ALCOHOL 195 mg/dL
[2017-04-25 23:00] LABS: ALKALINE PHOSPHATASE 72 IU/L (3-129); CREATININE 1.1 mg/dL (0.6-1.3); GFR ESTIMATE (CALCULATED) > 59 mL/min/ (58.99-99999)
[2017-04-25 23:01] LABS: UREA NITROGEN (BUN) 13 mg/dL (9-23)
[2017-04-25 23:02] LABS: AST (GOT) 29 IU/L (2-34)
[2017-04-25 23:03] LABS: ALT (GPT) 20 IU/L (3-49)
[2017-04-26 05:27] VITALS: BP 130/72
== END 2017-04-26 05:46 | disposition home or self-care (01) ==
LOC: EME 22:19
PROVIDERS: Emergency Medicine
DX: F10.921 Alcohol use, unspecified with intoxication delirium (principal); Y90.6 Blood alcohol level of 120-199 mg/100 ml; F12.90 Cannabis use, unspecified, uncomplicated; I10 Essential (primary) hypertension; F31.9 Bipolar disorder, unspecified; F32.9 Major depressive disorder, single episode, unspecified; F20.9 Schizophrenia, unspecified; F17.200 Nicotine dependence, unspecified, uncomplicated
CPT/HCPCS: 80053; 85027; 99281; 99283; G0480

== ENCOUNTER 2017-05-20 22:35 | Emergency (ER) | payer OTHER ==
[~2017-05-20] VITALS: Ht 188 cm; Wt 69.9 kg
[2017-05-21 03:05] VITALS: BP 122/85
== END 2017-05-21 03:08 | disposition home or self-care (01) ==
LOC: EME 22:35
DX: F10.10 Alcohol abuse, uncomplicated (principal); Y90.6 Blood alcohol level of 120-199 mg/100 ml; F20.9 Schizophrenia, unspecified; I10 Essential (primary) hypertension; F31.9 Bipolar disorder, unspecified; F32.9 Major depressive disorder, single episode, unspecified; F12.90 Cannabis use, unspecified, uncomplicated; F17.200 Nicotine dependence, unspecified, uncomplicated
CPT/HCPCS: 99281; 99283; G0480

== ENCOUNTER 2017-06-13 00:10 | Emergency (ER) | payer OTHER ==
[~2017-06-13] VITALS: Ht 188 cm; Wt 70.0 kg
[2017-06-13 09:09] VITALS: BP 120/57
== END 2017-06-13 09:12 | disposition home or self-care (01) ==
LOC: EME → EDBD 00:10 → EME 00:10
DX: F10.129 Alcohol abuse with intoxication, unspecified (principal); F12.929 Cannabis use, unspecified with intoxication, unspecified; I10 Essential (primary) hypertension; F32.9 Major depressive disorder, single episode, unspecified; F31.9 Bipolar disorder, unspecified; F20.9 Schizophrenia, unspecified; F17.200 Nicotine dependence, unspecified, uncomplicated
CPT/HCPCS: 99281; 99285

== ENCOUNTER 2017-06-22 23:24 | Emergency (ER) | payer OTHER ==
[~2017-06-22] VITALS: Ht 188 cm; Wt 69.5 kg
[2017-06-23 04:38] VITALS: BP 116/84
== END 2017-06-23 04:39 | disposition home or self-care (01) ==
LOC: EME → EDBD 23:24 → EME 06-23 04:39
DX: F10.129 Alcohol abuse with intoxication, unspecified (principal); I10 Essential (primary) hypertension; F31.9 Bipolar disorder, unspecified; F32.9 Major depressive disorder, single episode, unspecified; F20.9 Schizophrenia, unspecified; F17.200 Nicotine dependence, unspecified, uncomplicated
CPT/HCPCS: 99281; 99283

== ENCOUNTER 2017-07-08 17:33 | Emergency (ER) | payer OTHER ==
[~2017-07-08] VITALS: Ht 182.9 cm
[2017-07-08 18:05] LABS: HEMATOCRIT 37.7 % (38.0-50.0); HEMOGLOBIN 13.3 G/DL (12.5-16.6); MCH 31.9 PG (29.0-34.0); MCHC 35.3 G/DL (30.0-36.0); MCV 90.4 FL (86-99); PLATELET COUNT 167 K/uL (156-360); RBC DIS.WIDTH-CV 14.8 % (11.8-14.6); RBC DIS.WIDTH-SD 49.3 % (39-53); RED BLOOD COUNT 4.17 M/uL (4.00-5.50); WHITE BLOOD COUNT 5.4 K/uL (4.1-10.2)
[2017-07-08 18:15] LABS: CHLORIDE 103 mEq/L (99-109); POTASSIUM 3.8 mEq/L (3.7-5.4); SODIUM 138 mEq/L (136-147)
[2017-07-08 18:17] LABS: GLUCOSE 80 mg/dL (70-99)
[2017-07-08 18:20] LABS: SERUM ETHYL ALCOHOL 262 mg/dL
[2017-07-08 18:21] LABS: CREATININE 0.8 mg/dL (0.6-1.3); GFR ESTIMATE (CALCULATED) > 59 mL/min/ (58.99-99999); UREA NITROGEN (BUN) 10 mg/dL (9-23)
[2017-07-09 02:10] VITALS: BP 110/66
== END 2017-07-09 02:15 | disposition home or self-care (01) ==
LOC: EME 17:33
PROVIDERS: Emergency Medicine Emergency Medical Services
DX: F10.129 Alcohol abuse with intoxication, unspecified (principal); F19.10 Other psychoactive substance abuse, uncomplicated; R41.82 Altered mental status, unspecified; Y90.8 Blood alcohol level of 240 mg/100 ml or more; I10 Essential (primary) hypertension; F32.9 Major depressive disorder, single episode, unspecified; F20.9 Schizophrenia, unspecified; F17.200 Nicotine dependence, unspecified, uncomplicated
CPT/HCPCS: 80048; 85027; 99281; 99284; G0480

== ENCOUNTER 2017-07-12 11:21 | Inpatient (IN) | payer OTHER ==
[~2017-07-12] VITALS: Ht 182.9 cm; Wt 66.7 kg
[2017-07-12 12:16] LABS: HEMATOCRIT 38.9 % (38.0-50.0); HEMOGLOBIN 13.9 G/DL (12.5-16.6); MCH 31.9 PG (29.0-34.0); MCHC 35.7 G/DL (30.0-36.0); MCV 89.2 FL (86-99); PLATELET COUNT 190 K/uL (156-360); RBC DIS.WIDTH-CV 14.6 % (11.8-14.6); RBC DIS.WIDTH-SD 47.8 % (39-53); RED BLOOD COUNT 4.36 M/uL (4.00-5.50); WHITE BLOOD COUNT 5.6 K/uL (4.1-10.2)
[2017-07-12 12:25] LABS: CHLORIDE 99 mEq/L (99-109); POTASSIUM 4.3 mEq/L (3.7-5.4); SODIUM 135 mEq/L (136-147)
[2017-07-12 12:27] LABS: GLUCOSE 81 mg/dL (70-99)
[2017-07-12 12:30] LABS: SERUM ETHYL ALCOHOL 128 mg/dL
[2017-07-12 12:31] LABS: CREATININE 0.8 mg/dL (0.6-1.3); GFR ESTIMATE (CALCULATED) > 59 mL/min/ (58.99-99999)
[2017-07-12 12:32] LABS: UREA NITROGEN (BUN) 6 mg/dL (9-23)
[2017-07-12 12:58] LABS: AMPHETAMINE NEGATIVE (500 ng/mL); BARBITURATES NEGATIVE (200 ng/mL); BENZODIAZEPINES NEGATIVE (150 ng/mL); BUPRENORPHINE NEGATIVE (10 ng/mL); COCAINE NEGATIVE (150 ng/mL); METHADONE NEGATIVE (200 ng/mL); METHAMPHETAMINE NEGATIVE (500 ng/mL); OPIATES (MORPHINE) NEGATIVE (100 ng/mL); OXYCODONE NEGATIVE (100 ng/mL); PHENCYCLIDINE NEGATIVE (25 ng/mL); PROPOXYPHENE NEGATIVE (300 ng/mL); THC CANNABINOIDS NEGATIVE (50 ng/mL); TRICYCLIC ANTIDEPRESSANTS NEGATIVE (300 ng/mL)
[2017-07-12 16:15] VITALS: BP 136/79
[2017-07-12 16:21] VITALS: BP 136/79
[2017-07-13 09:06] VITALS: BP 136/72
[2017-07-13 16:35] VITALS: BP 121/72
[2017-07-14 09:37] VITALS: BP 114/74
[2017-07-14 17:05] VITALS: BP 131/76
[2017-07-15 09:39] VITALS: BP 136/79
[2017-07-15 16:44] VITALS: BP 126/58
[2017-07-16 08:05] VITALS: BP 117/81
[2017-07-16 16:31] VITALS: BP 134/74
[2017-07-17 07:47] VITALS: BP 139/79
[2017-07-17] MEDS ORDERED: RISPERDAL2 MG PO (09:56)
[2017-07-17] MEDS ORDERED: DIVALPROEX SOD500 MG PO (09:56)
[2017-07-17] MEDS ORDERED: RISPERDAL37.5 MG/2 IM (10:02)
[2017-07-17] MEDS ORDERED: COGENTIN0.5 MG PO (10:03)
== END 2017-07-17 14:31 | disposition home or self-care (01) | DRG 885 ==
LOC: EME 11:21 → EDOF 15:03 → 1WEST 15:03 → ENRESERV 16:12 → 1WEST 16:13
DX: F20.9 Schizophrenia, unspecified (principal); Z91.14 Patient's other noncompliance with medication regimen; F10.20 Alcohol dependence, uncomplicated; Y90.6 Blood alcohol level of 120-199 mg/100 ml; R45.851 Suicidal ideations; R45.850 Homicidal ideations; F17.200 Nicotine dependence, unspecified, uncomplicated; Z23 Encounter for immunization
CPT/HCPCS: 80048; 80164; 85027; 90839; 97150 GO; 97166 GO; 99281; 99285; G0480; J2794

== ENCOUNTER 2017-08-17 23:23 | Emergency (ER) | payer OTHER ==
[~2017-08-17] VITALS: Ht 188 cm; Wt 72.7 kg
[~2017-08-17 23:23] MED LIST changes: +RISPERDAL37.5 MG/2 IM
[2017-08-18 06:10] VITALS: BP 134/80
== END 2017-08-18 06:10 | disposition home or self-care (01) ==
LOC: EME → EDBD 23:23 → EME 08-18 06:10
DX: F10.121 Alcohol abuse with intoxication delirium (principal); I10 Essential (primary) hypertension; F17.200 Nicotine dependence, unspecified, uncomplicated
CPT/HCPCS: 99281; 99284